=== PATIENT | male | born 1965 | race African-American/Black ===

== ENCOUNTER 2023-11-03 11:46 | Emergency (ER) | payer BC ==
[~2023-11-03] VITALS: Ht 182.9 cm; Wt 80.7 kg
[2023-11-03] MEDS ORDERED: LYRICA50 MG PO (12:17)
[2023-11-03] MEDS ORDERED: KETOROLAC TROMETHAMINE 60 MG VIAL IM ONE (15:30)
[2023-11-03] MEDS ORDERED: DICLOFENAC SODI50 MG PO (15:50)
== END 2023-11-03 17:12 | disposition home or self-care (01) ==
LOC: ER 11:47
DX: M79.661 Pain in right lower leg (principal); G35 Multiple sclerosis; Z98.890 Other specified postprocedural states